=== PATIENT | male | born 1945 ===

== ENCOUNTER 2021-07-12 05:30 | Day surgery (SDC) | payer OTHER | END 2021-07-12 12:00 | disposition home or self-care (01) | LOC: AMB-ENDOS 05:30 | PROVIDERS: ATTEND Surgery | DX: D12.2 Benign neoplasm of ascending colon (principal); D12.3 Benign neoplasm of transverse colon; D12.4 Benign neoplasm of descending colon; Z20.822 Contact with and (suspected) exposure to COVID-19 ==

== ENCOUNTER 2021-08-01 09:45 | Inpatient (IN) | payer OTHER ==
[~2021-08-01] VITALS: Ht 175.3 cm; Wt 85.7 kg
[2021-08-01] MEDS ORDERED: CARDIZEM60 MG (12:26)
[2021-08-01] MEDS ORDERED: SYNTHROID50 MCG (12:26)
[2021-08-01] MEDS ORDERED: ATACAND32 MG (12:26)
[2021-08-01] MEDS ORDERED: HORIZANT300 MG (12:27)
[2021-08-05] MEDS ORDERED: ECOTRIN81 MG (11:45)
[2021-08-05] MEDS ORDERED: SV SALMON OIL1 EACH (11:45)
[2021-08-05] MEDS ORDERED: FAMOTIDINE20 MG (11:46)
[2021-08-05] MEDS ORDERED: TAMSULOSIN HCL0.4 MG (11:46)
[2021-08-05] MEDS ORDERED: VITAMIN D3125 MC1 (11:46)
[2021-08-05] MEDS ORDERED: VITAMIN E180 M1 (11:46)
[2021-08-05] MEDS ORDERED: VITAMIN C WITH500 MG (11:46)
[2021-08-05] MEDS ORDERED: VITAMIN B-12500 MCG (11:46)
[2021-08-05] MEDS ORDERED: MONTELUKAST SOD10 MG (11:47)
[2021-08-05] MEDS ORDERED: ADVIL200 M1 (11:47)
[2021-08-05] MEDS ORDERED: TOLTERODINE TART4 MG (11:47)
[2021-08-10] MEDS ORDERED: HYOSCYAMINE0.125 M1 SL (08:25)
[2021-08-10] MEDS ORDERED: PROTONIX40 MG PO (08:26)
[2021-08-10] MEDS ORDERED: OXYC1TAB9 PO (08:26)
[2021-08-10] MEDS ORDERED: INTESTINEX680 M1 PO (08:27)
== END 2021-08-10 13:46 | disposition home or self-care (01) | DRG 331 ==
LOC: SURH 08-04 07:00 → O/R 08-04 08:22 → SURH 08-04 09:45
PROVIDERS: ADMIT Surgery; ATTEND Surgery
PROC: 0DTN4ZZ Resection of Sigmoid Colon, Percutaneous Endoscopic Approach (ICD-10-PCS; 2021-08-04)
PROC: 0DTQ4ZZ Resection of Anus, Percutaneous Endoscopic Approach (ICD-10-PCS; 2021-08-04)
PROC: 07BC4ZX Excision of Pelvis Lymphatic, Percutaneous Endoscopic Approach, Diagnostic (ICD-10-PCS; 2021-08-04)
PROC: 3E0F7SF Introduction of Other Gas into Respiratory Tract, Via Natural or Artificial Opening (ICD-10-PCS; 2021-08-04)
PROC: 0DTP4ZZ Resection of Rectum, Percutaneous Endoscopic Approach (ICD-10-PCS; principal; 2021-08-04 07:00)
PROC: 4A033R1 Measurement of Arterial Saturation, Peripheral, Percutaneous Approach (ICD-10-PCS; 2021-08-05)
DX: C21.1 Malignant neoplasm of anal canal (principal); I11.9 Hypertensive heart disease without heart failure; D50.0 Iron deficiency anemia secondary to blood loss (chronic); G47.30 Sleep apnea, unspecified; E03.8 Other specified hypothyroidism